=== PATIENT | female | born 1970 | race Caucasian/White ===

== ENCOUNTER 2018-02-15 14:29 | Outpatient (CLI) | payer OTHER | END 2018-02-15 14:39 | disposition home or self-care (01) | LOC: RAD 14:29 | DX: Z01.818 Encounter for other preprocedural examination (principal); N92.5 Other specified irregular menstruation; N92.1 Excessive and frequent menstruation with irregular cycle ==

== ENCOUNTER 2018-02-15 15:30 | Inpatient (IN) | payer OTHER ==
[~2018-02-15] VITALS: Ht 162.6 cm; Wt 93.9 kg
[2018-02-23] MEDS ORDERED: SYNTHROID75 MCG PO (11:08)
[2018-02-23] MEDS ORDERED: ATENOLOL25 MG PO (11:09)
[2018-02-23] MEDS ORDERED: ZOLOFT50 MG PO (11:09)
[2018-02-23] MEDS ORDERED: COZAAR50 MG PO (11:09)
[2018-02-23] MEDS ORDERED: ZYRTEC10 M3 PO (11:10)
[2018-02-23] MEDS ORDERED: FAMOTIDINE40 MG PO (11:10)
[2018-02-23] MEDS ORDERED: OMEPRAZOLE40 MG PO (11:11)
[2018-02-26] MEDS ORDERED: COLACE100 MG PO (09:53)
[2018-02-26] MEDS ORDERED: KETO10TA2 PO (09:53)
[2018-02-26] MEDS ORDERED: PEPCID40 MG PO (09:54)
== END 2018-02-26 10:21 | DRG 743 ==
LOC: SURH 02-25 08:45 → OB/GYN 02-25 09:48 → O/R 02-25 09:48 → SURH 02-25 11:00 → OB/GYN 02-25 16:45
PROVIDERS: Obstetrics & Gynecology
PROC: 0UT74ZZ Resection of Bilateral Fallopian Tubes, Percutaneous Endoscopic Approach (ICD-10-PCS; 2018-02-25)
PROC: 0USG4ZZ Reposition Vagina, Percutaneous Endoscopic Approach (ICD-10-PCS; 2018-02-25)
PROC: 0UT94ZZ Resection of Uterus, Percutaneous Endoscopic Approach (ICD-10-PCS; principal; 2018-02-25 11:00)
DX: D25.2 Subserosal leiomyoma of uterus (principal); N93.8 Other specified abnormal uterine and vaginal bleeding; N92.0 Excessive and frequent menstruation with regular cycle